=== PATIENT | female | born 2000 | race African-American/Black ===

== ENCOUNTER 2020-07-02 16:57 | Emergency (ER) | payer MEDICAID ==
[~2020-07-02] VITALS: Ht 175.3 cm; Wt 65.0 kg
[2020-07-02 17:24] VITALS: BP 142/82
== END 2020-07-02 18:37 | disposition left against medical advice (07) ==
LOC: ER 16:57
DX: Z53.21 Procedure and treatment not carried out due to patient leaving prior to being seen by health care provider (principal)